=== PATIENT | female | born 1990 | race African-American/Black ===

== ENCOUNTER 2017-08-17 22:15 | Emergency (ER) | payer OTHER ==
[~2017-08-17] VITALS: Ht 167.6 cm; Wt 65.9 kg
[2017-08-17 22:36] VITALS: BP 130/93; PULSE 113; RESP 16; TEMP 98.4; O2SAT 98
--- NOTE | 2017-08-17 22:43 | PD ---
HPI Chief Complaint: Alcohol/Drug Intoxication Time Seen by Provider: 22:39 Travel History International Travel<30 days: No Contact w/Intl Traveler<30days: No History of Present Illness HPI Patient is a 27-year-old female presenting to the emergency department under a Kaleb's act due to public intoxication. Patient was observed at a bar, she did not know where she lived when police questioned her and was slurring her speech. She then reported that she would pay for her hotel room but when she got to the hotel began to walk off towards the road. The police felt that she was unsafe and brought her to the emergency department. Patient admits to drinking alcohol tonight, she denies any illicit drug use. She has no physical complaints at this time. [facility] Past Medical History Medical History: Denies Significant Hx Social History Alcohol Use: Yes Tobacco Use: Yes Substance Use: No Allergies-Medications (Allergen,Severity, Reaction): Coded Allergies: Penicillins (Verified Allergy, Intermediate, 08/17/17) RASH Uncoded Allergies: PCN (Allergy, Unknown, 08/17/17) Reported Meds & Prescriptions Reported Meds & Active Scripts Active No Active Prescriptions or Reported Medications Review of Systems ROS Limitations: Intoxication Except as stated in HPI: all other systems reviewed are Neg Physical Exam Exam Limitations: Intoxication Narrative GENERAL: Well-developed, well-nourished, well kept female. Resting in no acute distress. Appears intoxicated. SKIN: Warm and dry. HEAD: Atraumatic. Normocephalic. EYES: Pupils equal and round. No scleral icterus. No injection or drainage. ENT: No nasal bleeding or discharge. Mucous membranes pink and moist. NECK: Trachea midline. No JVD. CARDIOVASCULAR: Regular rate and rhythm. RESPIRATORY: No accessory muscle use. Clear to auscultation. Breath sounds equal bilaterally. GASTROINTESTINAL: Abdomen soft, non-tender, nondistended. Hepatic and splenic margins not palpable. MUSCULOSKELETAL: Extremities without clubbing, cyanosis, or edema. No obvious deformities. NEUROLOGICAL: Awake and alert. No obvious cranial nerve deficits. Motor grossly within normal limits. Five out of 5 muscle strength in the arms and legs. Normal speech. PSYCHIATRIC: Appropriate mood and affect; insight and judgment impaired. Data Data Last Documented VS Vital Signs Date Time Temp Pulse Resp B/P (MAP) Pulse Ox O2 Delivery O2 Flow Rate FiO2 08/17/17 22:36 98.4 113 16 130/93 (105) 98 Orders Orders Alcohol (Ethanol) (08/17/17 22:30) Iv Access Insert/Monitor (08/17/17 22:37) Sodium Chlor 0.9% 1000 Ml Inj (Ns 1000 M (08/17/17 22:45) Labs Laboratory Tests Test 08/17/17 22:55 Ethyl Alcohol Level 333 MG/DL MDM Medical Decision Making Medical Screen Exam Complete: Yes Emergency Medical Condition: Yes Interpretation(s) Laboratory Tests Test 08/17/17 22:55 Ethyl Alcohol Level 333 MG/DL Vital Signs Date Time Temp Pulse Resp B/P (MAP) Pulse Ox O2 Delivery O2 Flow Rate FiO2 08/17/17 22:36 98.4 113 16 130/93 (105) 98 Differential Diagnosis Intoxication versus mood disorder versus metabolic abnormality versus other Narrative Course Patient was brought into the emergency Department under Gan's act for public intoxication. She did not no where she lived, her speech was slurred and appeared intoxicated. Patient is mildly tachycardic on arrival, she does appear intoxicated. Labs ordered and pending. Blood alcohol level is 333, patient will be kept in the emergency department until approximately 8 AM at which time her blood alcohol level is less than 80. She'll be discharged when she shows evidence of sobriety and is safe to be discharged. Patient is medically cleared at this time. Diagnosis Primary Impression: Alcohol intoxication Qualified Codes: F10.920 - Alcohol use, unspecified with intoxication, uncomplicated Referrals: Primary Care Physician Patient Instructions: Alcohol Intoxication (ED), General Instructions Additional Instructions: Avoid excessive intake of alcohol Follow-up with her primary doctor Return to emergency department for any new or worsening symptoms Med/Other Pt SpecificInfo: No Change to Meds Scripts No Active Prescriptions or Reported Meds Disposition: 01 DISCHARGE HOME Condition: Stable Hermelinda Curtis Ann [facility] Aug 17, 2017 22:43
[2017-08-17] MEDS ORDERED: SODIUM CHLOR 0.9% 1000 ML INJ 1,000 ML IV ONE (22:45)
== END 2017-08-18 08:22 | disposition home or self-care (01) ==
LOC: NEPD 22:15
DX: F10.920 Alcohol use, unspecified with intoxication, uncomplicated (principal); Y90.8 Blood alcohol level of 240 mg/100 ml or more; Z88.0 Allergy status to penicillin; Z72.0 Tobacco use
CPT/HCPCS: 80307; 99284; J7030